=== PATIENT | male | born 1950 | race Caucasian/White ===

== ENCOUNTER 2020-12-31 15:45 | Emergency (ER) | payer MEDICARE ==
[~2020-12-31] VITALS: Ht 188 cm; Wt 76.9 kg
[2020-12-31 16:36] VITALS: BP 101/68
--- NOTE | 2020-12-31 16:48 | NUR ---
PT REC'VD DISCHARGE INSTRUCTIONS AND EDUCATION. PT HAD NO FURTHER QUESTIONS. PT AMBULATED TO DC AREA, STEADY GAIT.
== END 2020-12-31 16:51 | disposition home or self-care (01) ==
LOC: ED 15:50
DX: K41.90 Unilateral femoral hernia, without obstruction or gangrene, not specified as recurrent (principal)
CPT/HCPCS: 99281